=== PATIENT | female | born 1975 ===

== ENCOUNTER → 2017-11-27 14:24 | Outpatient (CLI) | payer OTHER | END | disposition home or self-care (01) | LOC: LAB 14:24 | DX: D47.3 Essential (hemorrhagic) thrombocythemia (principal); D68.9 Coagulation defect, unspecified ==

== ENCOUNTER 2017-12-12 09:55 | Day surgery (SDC) | payer OTHER | END 2017-12-12 16:55 | disposition home or self-care (01) | LOC: EDBD → CIR.AMB 09:55 | DX: R87.612 Low grade squamous intraepithelial lesion on cytologic smear of cervix (LGSIL) (principal) ==

== ENCOUNTER 2018-04-08 07:19 | Outpatient (CLI) | payer OTHER | END 2018-04-08 07:23 | disposition home or self-care (01) | LOC: SONOGRAMA 07:19 | DX: E04.1 Nontoxic single thyroid nodule (principal) ==